=== PATIENT | female | born 1995 | race Caucasian/White ===

== ENCOUNTER 2017-01-01 22:12 | Emergency (ER) | payer MEDICAID, OTHER ==
[~2017-01-01] VITALS: Ht 175.3 cm; Wt 68.2 kg
[~2017-01-01 22:12] MED LIST: AGM875T PO; CIPR-231 PO; FERR-83 PO; HYDR-4150 PO; IBUP800T28 PO; PHEN-684 PO; PREN-20 PO; SULF1TAB7 PO
[2017-01-01 22:15] VITALS: BP 108/70; PULSE 71; RESP 16; O2SAT 99
--- NOTE | 2017-01-01 22:29 | ED.REPORT ---
HPI-Abd Pain F Under 39 Date of Service Jan 01, 2017 ED Provider: Dr. Lomax 21 y/o female with no pertinent hx presents to the ED complaining of constipation for the past 3 days. She has been using enema but it has not been effective. She denies using suppositories and laxatives. Her last BM was 3 days ago. At the time she noticed blood in her stool. The pt also reports a bulge near the anus for the past two days. She states it is painful and extends upwards. She denies nausea, fever and chills. Typically, the pt has a BM every 2 -3 days. Nursing Notes Stated Complaint: RECTAL BLEEDING Chief Complaint: Female Abdominal Pain Nursing Notes Reviewed: Yes Allergies: Coded Allergies: No Known Allergies (Verified Allergy, Unknown, 07/05/15) Scheduled Amoxicillin/Clav K 875-125 mg (Amoxicillin/Clav K 875-125 mg) 875 Mg Tab 1 TABLET PO BID Ciprofloxacin (Cipro) 500 Mg Tablet 500 MG PO BID Ferrous Sulfate (Ferrous Sulfate) 325 Mg Tablet 325 MG PO BID Pnv with Ca,No.71/Iron/FA ( Vitamin Tablet) 1 Each Tablet 1 EACH PO DAILY Polyethylene Glycol 3350 (Miralax) 17 Gm Powd.pack 17 GM PO DAILY Sulfamethoxazole/Trimeth 800-160 mg (Bactrim DS) 1 Each Tablet 1 TABLET PO BID Scheduled PRN Hydrocodone/Acetaminophen ([place] 5-325 Tablet) 1 Tablet Tablet 1-2 TABLET PO Q4H PRN PRN For Pain Ibuprofen (Ibuprofen) 800 Mg Tablet 800 MG PO Q6H PRN PRN For Pain Phenazopyridine (Pyridium) 200 Mg Tablet 200 MG PO TID PRN PRN For Pain General Time Seen by MD: 22:28 Chief Complaint Constipation Hx Obtained From: Patient Arrived By: Walk-in Sudden in Onset?: Yes Onset Occurred: 3 days ago Symptom Duration: Since onset Severity: Current: Mild Severity: Maximum: Mild Recent Healthcare: No recent doctor visit Similar Sx Previous: No Past Medical History Past Medical History Hx of UTI Hx of Kidney Infections Past Surgical History none reported Smoking History Never Smoker Social History Other Social History: Good social support, , Lives with children, Local resident Ambulatory Status Independent Review of Systems Reports: bulge near the anus Constitutional: Denies: Chills, Fever GI: Reports: Constipation Complete sys rev & neg: except as marked. Physical Exam Initial Vital Signs Vital Signs (First) Date Time Temp Pulse Resp B/P Pulse Ox O2 Delivery O2 Flow Rate FiO2 01/01/17 22:15 37.0 71 16 108/70 99 Room Air Initial VS: Reviewed Head / Eyes: Atraumatic, Normocephalic Neck: Supple, Non-tender, Full range of motion Extremities: Vascular intact, Neuro intact, No swelling, No tenderness Skin: Warm, Dry, No cyanosis Neurologic: Alert, Oriented, Nonfocal General/Constitutional: Awake, Alert, Cooperative Respiratory / Chest: Atraumatic, Breath sounds NL, Breath sounds = bilat, No respiratory distress, No rales, No rhonchi, No wheezing Cardiovascular: Heart rate NL, Regular rhythm, Heart sounds NL, No gallop, No murmurs, No rubs Abdomen: Atraumatic, Soft, No guarding, No rebound Bowel Sounds / Distention: Positive: Bowel sounds hypoactive Fullness over the left lower quadrant Back: Atraumatic, Full range of motion, Painless range of motion Rectum / Perineum: Atraumatic, No fissures, No hemorrhoids, No lesions 3x2cm deep and tender right posterior labial mass. No overlying warmth or redness, no fluctuance Bedside ultrasound reveals approimately 2x3cm mass, does not have the appearance of fluid. Interpretation & Diagnostics Lab Results Interpretation Result Diagram: 01/01/17232401/01/172324 Test 01/01/17 23:25 White Blood Count 6.6th/mm3 (3.8-10.1) Red Blood Count 3.89mil/mm3 (3.90-5.20) Hemoglobin 11.8g/dL (12.0-15.6) Hematocrit 36.3% (35.0-46.0) Mean Corpuscular Volume 93.3fL (81-100) Mean Corpuscular Hemoglobin 30.3pg (27.0-35.0) Mean Corpuscular Hemoglobin Concent 32.5% (32.0-37.0) Red Cell Distribution Width 12.8% (12.3-15.4) Platelet Count 293bil/L (150-400) Neutrophils (%) (Auto) 42.0% (40-74) Lymphocytes (%) (Auto) 46.7% (14-46) Monocytes (%) (Auto) 8.7% (4-12) Eosinophils (%) (Auto) 2.4% (0-5) Basophils (%) (Auto) 0.2% (0-3) Sodium Level 141mEq/L (134-144) Potassium Level 3.9mEq/L (3.5-5.2) Chloride Level 100mEq/L (97-108) Carbon Dioxide Level 26mmol/L (18-29) Blood Urea Nitrogen 11mg/dL (6-20) Creatinine 0.60mg/dL (0.57-1.00) Estimat Glomerular Filtration Rate 179mL/min (>59) Glucose Level 95mg/dL (60-99) Calcium Level 9.5mg/dL (8.5-10.1) Magnesium Level 1.7mg/dL (1.6-2.6) Total Bilirubin 0.2mg/dL (0.0-1.2) Aspartate Amino Transf (AST/SGOT) 17U/L (0-50) Alanine Aminotransferase (ALT/SGPT) 17U/L (0-32) Alkaline Phosphatase 54U/L (25-150) Total Protein 6.9g/dL (6.4-8.4) Albumin 4.3g/dL (3.4-5.0) Lipase 36U/L (13-60) Hold Taylor Top Tube Received (Received) Re-Eval/Medical Decision Med Decision/Clinical Course Discussed case with gynecology, Dr. Patterson. Offered patient a CT scan which she initially wanted then decided to hold off until she is evaluated by Dr. Patterson. No signs of infection based on blood counts, and there is no erythema or fluctuance on physical exam. bulge is no in typical location for bartholins cyst and no external hemorrhoids are noted. Ultrasound done at bedside does not show fluid collection. Re-Evaluation/Progress : Time of Eval: 00:01 Re-Evaluation/Progress Note: Rechecked pt. The pt initially agreed to a CT but later denied it and states she wants to meet with Dr. Patterson first. Discussed lab results, imaging results, diagnosis and plan to discharge. Pt understands and agrees with the plan. F/U instructions and RTER warning given. All questions addressed. Consultation : Referral / Consult Name: Jak Patterson MD Call Returned at: 23:51 Transcription: Will see in office Note: Dr. Patterson will see the pt in his office next week. Counseled Regarding: Diagnosis, Lab results, Need for follow-up, When/why to return to ED Discharge & Departure Primary Impression: Perineal mass in female Additional Impressions: Constipation Constipation type: unspecified constipation type Qualified Code: K59.00 - Constipation, unspecified Perineal pain Ruled Out: Perirectal abscess, Labial abscess Disposition: Home Discharge Condition All VS Reviewed: Yes Condition: Stable Patient Instructions: Acute Abdominal Pain (ED) Additional Instructions: Thank you for entrusting us with your care today. Drink the bottle of magnesium citrate at home and that should get your bowels moving very well. Take miralax daily for constipation as needed. Please make an appointment for Wednesday or Wednesday with Dr. Jak Patterson, a customer management specialist in [place] ( ) for further evaluation of the mass in your perineal area. Return to the emergency department in case of new or worsening symptoms. Referrals: Danilo Ray MD (PCP) Scribe Attestation Portions of this note were transcribed by Donna Smith. I, , personally performed the history, physical exam and medical decision- making;I reviewed and confirmed the accuracy of the information in the transcribed note. Signed by Noe Roman. 01/02/17 00:01 copies to: Danilo Ray MD, Gary R DO Jan 01, 2017 22:29 Donna Smith Jan 01, 2017 23:15
[2017-01-01 23:37] LABS: BASOPHILS % (AUTO) 0.2 % (0-3); EOSINOPHILS % (AUTO) 2.4 % (0-5); MONOCYTES % (AUTO) 8.7 % (4-12); Mean Corpuscular Hemoglobin 30.3 pg (27.0-35.0); Mean Corpuscular Volume 93.3 fL (81-100); Platelet Count 293 bil/L (150-400)
[2017-01-02 00:03] LABS: Magnesium 1.7 mg/dL (1.6-2.6)
[2017-01-02] MEDS ORDERED: POLY17PO6 PO (00:21)
[2017-01-02 00:34] VITALS: BP 108/70; PULSE 71; RESP 16; O2SAT 99
== END 2017-01-02 00:35 | disposition home or self-care (01) ==
LOC: SED 22:12
DX: R19.00 Intra-abdominal and pelvic swelling, mass and lump, unspecified site (principal); K59.00 Constipation, unspecified; R10.2 Pelvic and perineal pain